=== PATIENT | male | born 1950 | race Caucasian/White ===

== ENCOUNTER 2023-08-27 21:45 | Emergency (ER) | payer BC, SELFPAY ==
--- NOTE | 2023-08-27 | ECG_ITS ---
Test Reason : dyspnea Blood Pressure : / mmHG Vent. Rate : 053 BPM Atrial Rate : 053 BPM P-R Int : 180 ms QRS Dur : 088 ms QT Int : 478 ms P-R-T Axes : 045 049 173 degrees QTc Int : [address] & T wave abnormality, consider inferior ischemia ST & T wave abnormality, consider anterolateral ischemia Abnormal ECG No previous ECGs available Referred By: Generic ED Physician Electronically Signed By:MERCEDES XAVIER
--- NOTE | ~2023-08-27 | XR_ITS ---
EXAMINATION: XR CHEST CLINICAL INFORMATION: Shortness of breath. COMPARISON: None available. TECHNIQUE: 2 views of the chest were obtained. FINDINGS: There are sternotomy sutures. There is a left atrial appendage clip. There are surgical clips along the right heart border. The heart is normal in size. 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 The lungs are clear. There is no pleural effusion or pneumothorax. No acute osseous abnormality. XR/XR chest 2V IMPRESSION: No acute cardiopulmonary disease.
[2023-08-27 22:05] VITALS: BP 111/59; PULSE 52; RESP 21; TEMP 36.3; O2SAT 97; BMI 26.1
[2023-08-27 22:33] LABS: MANUAL DIFF FLAG NO
[2023-08-27 22:37] LABS: Basophils Percent Auto 0.4 % (0-2); Eosinophils Absolute Auto 0.2 X10*3/uL (0.0-0.4); Eosinophils Percent Auto 3.4 % (0-4); Hematocrit 36.7 % (42.0-52.0); Hemoglobin 12.6 g/dl (14.0-18.0); Imm Gran Abs Auto 0.02 X10*3/uL (0.00-0.03); Imm Gran Pct Auto 0.3 % (0.0-0.4); Lymphocytes Absolute Auto 1.5 X10*3/uL (1.2-4.9); Lymphocytes Percent Auto 22.1 % (20-40); Mean Corpuscular HGB Conc 34.3 g/dl (31.0-36.0); Mean Corpuscular Hemoglobin 32.4 pg (27.0-33.0); Mean Corpuscular Volume 94.3 fL (80.0-98.0); Mean Platelet Volume 9.9 fL (9.4-12.4); Monocytes Absolute Auto 0.7 X10*3/uL (0.1-1.2); Monocytes Percent Auto 10.2 % (2-11); Neutrophils Absolute Auto 4.4 x10*3/uL (2.0-8.3); Neutrophils Percent Auto 63.6 % (45-73); Platelet Count 184 X10*3/uL (160-400); Red Blood Count 3.89 X10*6/uL (4.60-5.80); Red Cell Distribution Width 13.5 % (11.0-16.0)
[2023-08-27 22:51] LABS: Alanine Aminotransferase 19 U/L (0-40); Albumin Level 3.9 g/dL (3.5-5.0); Alkaline Phosphatase 63 U/L (39-117); Anion Gap 14 (12-20); Aspartate Amino Transferase 20 U/L (5-37); Bilirubin Total 0.8 mg/dL (0.0-1.0); Blood Urea Nitrogen 22 mg/dL (9-16); Calcium 9.7 mg/dL (8.4-10.2); Carbon Dioxide 26 mmol/L (22-29); Chloride 104 mmol/L (96-108); Creatinine Clr Calc Pharmacy 48.8; Estimated Glomerular Filt Rate > 60; Glucose Random 174 mg/dL (60-115); Sodium 140 mmol/L (135-145); Total Protein 6.5 g/dL (6.5-8.0)
[2023-08-27 22:57] LABS: B Type Natriuretic Peptide 268 pg/mL (<100)
[2023-08-27 22:58] LABS: Troponin-I High Sensitivity 12.5 ng/L (<3.5-35.0)
[2023-08-27 23:15] LABS: Influenza A PCR NEGATIVE (Negative); Influenza B PCR NEGATIVE (Negative); Resp Syncy Virus RNA Qual PCR NEGATIVE (Negative); SARS COV2 PCR INHOUSE NEGATIVE (Negative)
[2023-08-28 00:19] VITALS: PULSE 55; RESP 20; TEMP 37.1; O2SAT 99
--- NOTE | 2023-08-28 00:21 | PC.NURSE ---
Pt reports 7/10 chest pain with cough. A&oX4 cough was productive but now dry and persistent.
--- NOTE | 2023-08-28 00:31 | ED.GENADULT ---
HPI - General Adult General Chief complaint: Dyspnea Stated complaint: Cough Time Seen by Provider: 08/28/23 00:30 Source: patient Mode of arrival: ambulatory Limitations: no limitations History of Present Illness HPI narrative: Patient is a 73 year old assigned male at with a history of pulmonary hypertension presenting to the emergency department today with a productive cough. Patient states that over the last 4 days he has had a persistent cough that is sometimes productive. Patient denies any dizziness, lightheadedness, abdominal pain, nausea, vomiting, fever, chills, blurry vision, double vision, loss of vision, chest pain, difficulty breathing, shortness of breath, back pain, night sweats, pain with urination, increased urinary frequency, increased urinary urgency, blood in his urine or stool, syncope or a near syncopal episode, recent trauma or falls, bowel incontinence, bladder incontinence, bowel retention, bladder retention, or any other complaints at this time. Onset (ago): day(s) (4) Severity: mild Relieving factors: none Exacerbating factors: none Associated symptoms: cough Treatments prior to arrival: none Related Data Previous Rx's ?Medication ?Instructions ?Recorded benzonatate 100 mg capsule 100 mg PO BID PRN cough 7 days #14 08/28/23 caps dextromethorphan-guaifenesin 10 1 tab-cap PO Q8H PRN cough #14 caps 08/28/23 mg-200 mg capsule (Coricidin HBP Chest Congestion-Cough) doxycycline hyclate 100 mg tablet 100 mg PO BID 7 days #14 tabs 08/28/23 Allergies Allergy/AdvReac Type Severity Reaction Status Date / Time lisinopril Allergy Cough Verified 08/27/23 22:09 Review of Systems Constitutional: Constitutional: Reports no additional constitutional complaints, Denies chills, Denies fever(s) and Denies night sweats Eyes: Eyes: Reports no additional eye complaints, Denies blurry vision, Denies change in vision, Denies diplopia, Denies eye discharge, Denies loss of vision and Denies eye pain ENT: Denies dizziness Cardiovascular: Cardiovascular: Reports no additional cardiovascular complaints, Denies chest pain, Denies lightheadedness, Denies Loss of Consciousness and Denies dyspnea Respiratory: Respiratory: Reports no additional respiratory complaints, Reports cough and Denies dyspnea Gastrointestinal: Gastrointestinal: Reports no additional gastrointestinal complaints, Denies abdominal pain, Denies melena, Denies hematochezia, Denies change in bowel habits and Denies change in stool character Genitourinary: Genitourinary: Reports no additional male genitourinary complaints, Denies hematuria, Denies oliguria, Denies difficulty urinating, Denies dysuria, Denies urinary frequency, Denies urinary hesitancy, Denies urinary incontinence and Denies urinary urgency Musculoskeletal: Musculoskeletal: Reports no additional musculoskeletal complaints, Denies numbness and Denies tingling Neurologic: Denies dizziness, Denies loss of vision, Denies numbness and Denies tingling Psychiatric: Psychiatric: Reports no additional psychiatric complaints Endocrine: Endocrine: Reports no additional endocrine complaints Hematologic/Lymphatic: Hematologic/Lymphatic: Reports no additional hematologic/lymphatic complaints Allergic/Immunologic: Allergic/Immunologic: Reports no additional allergic/immunologic complaints PMFSH Past Medical History Attestation statement: The following information was validated with the patient. Source: old records reviewed and nursing notes reviewed Social History Social History Alcohol intake: never Smoked in Last 30 Days: No Use of substances other than those prescribed or required for medical reasons: No Advance Directives: No Advance Directives Information Provided: Yes Do you have a plan to hurt others: No Plan Physical Exam ED Vital Signs: Vital Signs - 24 hr 08/27/23 22:05 08/28/23 00:19 08/28/23 01:12 Temperature 97.3 F 98.7 F 98.7 F Pulse Rate 52 55 55 Respiratory Rate 21 H 20 20 Blood Pressure 111/59 L 111/59 L Pulse Oximetry 97 99 99 Oxygen Delivery Method Room Air Room Air Room Air BMI result Body Mass Index 26.1 Const General: cooperative, no acute distress, alert and awake Nutritional Appearance: well nourished Orientation/consciousness: patient oriented x3 Limitations: no limitations HENMT Head: Yes normal to inspection and Yes atraumatic Ears: hearing grossly normal bilaterally and external ears normal General nose exam: Normal external nose present, no nasal discharge noted and no epistaxis Face and sinus: Yes normal facial exam, No abrasion and No laceration Mouth: Normal oral and palatal mucosa present, no drooling and no muffled voice Eyes General: appearance normal, both eyes and all related structures Periorbital: periorbital findings normal Eyelids: Yes eyelids normal Conjunctivae: conjunctivae normal Pupils: Equal, round and reactive pupils present EOM: EOMs intact bilaterally Neck Neck: Yes normal visual inspection, Yes full ROM and Yes no lymphadenopathy Chest Chest palpation & inspection: normal inspection of the chest Resp Effort & Inspection: normal respiratory effort, able to speak in complete sentences and Actively coughing Quality: productive GI Inspection: Yes normal to inspection Neuro General: patient oriented x3 and moves all extremities Cranial nerves: Yes Equal, round and reactive pupils present Cognition (Neuro): normal cognition Motor exam (neuro): 5/5 motor strength present throughout Sensory Exam: Normal double simultaneous stimulation for sensation Coordination: [id number] test normal Extrem General: Yes normal to inspection, Yes full ROM and Yes capillary refill normal Psych Appearance: grossly normal Mental Status: mental status grossly normal Affect: normal affect Attitude: cooperative Thought process: Normal thought process present Thought content: Normal thought content present Insight: Good insight present (Psych) Medications Administered Discontinued Medications Generic Name Dose Route Start Last Admin Trade Name Freq PRN Reason Stop Dose Admin Benzonatate 100 mg 08/28/23 00:47 08/28/23 01:09 Benzonatate 100 Mg Capsule PO 08/28/23 00:48 100 mg ONCE ONE Administration Doxycycline Monohydrate 100 mg 08/28/23 00:47 08/28/23 01:09 Doxycycline Monohydrate 100 Mg Capsule PO 08/28/23 00:48 100 mg ONCE ONE Administration Medical Decision Making Medical Decision Making [facility] Narrative: Patient is a 73 year old assigned male at with a history of pulmonary hypertension presenting to the emergency department today with a persistent cough that is sometimes productive. Patient's physical exam showed a cough but was otherwise unremarkable. Patient's blood work showed a very mild elevated BNP of 268 but were otherwise unremarkable. Patient's EKG was unremarkable. Patient's chest x-ray showed no acute process. Patient's clinical presentation is most consistent with bronchitis / URI. No evidence of fluid overload. I explained my physical exam findings as well as all test results to the patient. I answered all questions asked by the patient. I stressed the importance of the patient taking his medication as prescribed. I stressed the importance of the patient following up with his primary care provider. I stressed the importance of the patient returning to the emergency department immediately if his symptoms were to worsen or if he were to develop any dizziness, shortness of breath, difficulty breathing, chest pain, blurry vision, loss of vision, nausea, vomiting, abdominal pain, fever, chills, back pain, or any other complaints. Patient verbalized agreement and understanding with this treatment plan and discharge. Differential Diagnosis Differential Diagnoses: The differential diagnosis associated with the presentation includes Persistent cough Bronchitis COVID-19 Influenza RSV CHF PNA Admission/Observation Consideration of admission/observation: Escalation of care including admission/observation considered Patient would have been admitted to the hospital had his work up had any findings where hospital admission was appropriate and his clinical presentation warranted hospital admission. Lab Data [facility] Lab Attestation statement: I reviewed the patient's lab results. My interpretation of these results are in the [facility] Rationale portion of this note. 08/27/23 22:28 08/27/23 22:28 Labs: Lab Results 08/27/23 Range/Units 22:28 WBC 7.0 (4.8-10.8) X10*3/uL RBC 3.89 L (4.60-5.80) X10*6/uL Hgb 12.6 L (14.0-18.0) g/dl Hct 36.7 L (42.0-52.0) % MCV 94.3 (80.0-98.0) fL MCH 32.4 (27.0-33.0) pg MCHC 34.3 (31.0-36.0) g/dl RDW 13.5 (11.0-16.0) % Plt Count 184 (160-400) X10*3/uL MPV 9.9 (9.4-12.4) fL Immature Gran % (Auto) 0.3 (0.0-0.4) % Neut % (Auto) 63.6 (45-73) % Lymph % (Auto) 22.1 (20-40) % Bee % (Auto) 10.2 (2-11) % Eos % (Auto) 3.4 (0-4) % Baso % (Auto) 0.4 (0-2) % Lymph # (Auto) 1.5 (1.2-4.9) X10*3/uL Bee # (Auto) 0.7 (0.1-1.2) X10*3/uL Eos # (Auto) 0.2 (0.0-0.4) X10*3/uL Baso # (Auto) 0.0 (0.0-0.2) X10*3/uL Abs Immat Gran (auto) 0.02 (0.00-0.03) X10*3/uL Absolute Neuts (auto) 4.4 (2.0-8.3) x10*3/uL Absolute Nucleated RBC 0.000 (0.0-0.012) X10*3/uL Nucleated RBC % (auto) 0.0 (0.0-0.2) /100WBC Sodium 140 (135-145) mmol/L Potassium 4.0 (3.3-5.1) mmol/L Chloride 104 (96-108) mmol/L Carbon Dioxide 26 (22-29) mmol/L Anion Gap 14 (12-20) BUN 22 H (9-16) mg/dL Creatinine 1.18 (0.5-1.4) mg/dL Estim Creat Clear Calc 48.8 Estimated GFR > 60 Random Glucose 174 H (60-115) mg/dL Calcium 9.7 (8.4-10.2) mg/dL Total Bilirubin 0.8 (0.0-1.0) mg/dL AST 20 (5-37) U/L ALT 19 (0-40) U/L Alkaline Phosphatase 63 (39-117) U/L Troponin I High Sens 12.5 (<3.5-35.0) ng/L B-Natriuretic Peptide 268 H (<100) pg/mL Total Protein 6.5 (6.5-8.0) g/dL Albumin 3.9 (3.5-5.0) g/dL Influenza Type A (PCR) NEGATIVE (Negative) Influenza Type B (PCR) NEGATIVE (Negative) RSV RNA Qual (PCR) NEGATIVE (Negative) SARS-CoV-2 RNA (RT-PCR) NEGATIVE (Negative) Independent Interpretation I performed an independent interpretation of an: EKG and Plain X-Ray Interpretation: My interpretation is in agreement with the radiologist's impression of this imaging study. EXAMINATION: XR CHEST CLINICAL INFORMATION: Shortness of breath. COMPARISON: None available. TECHNIQUE: 2 views of the chest were obtained. FINDINGS: There are sternotomy sutures. There is a left atrial appendage clip. There are surgical clips along the right heart border. The heart is normal in size. 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 The lungs are clear. There is no pleural effusion or pneumothorax. No acute osseous abnormality. XR/XR chest 2V IMPRESSION: No acute cardiopulmonary disease. Dictated By: Bryan Bowles Jr, DO Signed By: Electronically signed by Bryan Bowles Jr, DO 08/27/23 2257 Vent. Rate: 053 BPM Atrial Rate: 053 BPM P-R Int: 180 ms QRS Dur: 088 ms QT Int: 478 ms P-R-T Axes: 045 049 173 degrees QTc Int: [address] & T wave abnormality, consider inferior ischemia ST & T wave abnormality, consider anterolateral ischemia Abnormal ECG No previous ECGs available DD/ 2092 Radiology Impression Discussion of test interpretation with radiology: I have reviewed the radiologist's reading. Prescription Management I considered prescription management with: Antibiotic (patient prescribed antibiotic for bronchitis) Discharge Plan Discharge Clinical Impression: Cough, Bronchitis Patient Disposition: Home, Self-Care Instructions: Acute Bronchitis (ED), Acute Cough (ED) Additional Instructions: Your medication was prescribed to [address] [place] [address] in [facility]. Take your medication as prescribed. Follow up with your primary care provider. Return to the emergency department immediately if your symptoms worsen or if you develop any dizziness, shortness of breath, difficulty breathing, chest pain, blurry vision, loss of vision, nausea, vomiting, abdominal pain, fever, chills, back pain, or any other complaints. Prescriptions: New benzonatate 100 mg capsule 100 mg PO BID PRN (Reason: cough) 7 Days Qty: 14 0RF doxycycline hyclate 100 mg tablet 100 mg PO BID 7 Days Qty: 14 0RF Coricidin HBP Chest Geovany-Cough 10-200 mg capsule 1 tab-cap PO Q8H PRN (Reason: cough) Qty: 14 0RF Referrals: [facility] Family Medicine [Provider Group] (Call to establish and follow up with a primary care provider. If you already have a primary care provider, please follow up with them.) [facility] [Provider Group] [facility] [Provider Group] Stand Alone Forms: Work/School Release Interventions: ED Discharge Assessment Last Done: 08/28/23 01:12 Discharge Date/Time: 08/28/23 01:30 Print Language: Icelandic
[2023-08-28] MEDS: Benzonatate 100 MG CAPSULE PO (01:09)
[2023-08-28] MEDS: Doxycycline Monohydrate 100 MG CAPSULE PO (01:09)
[2023-08-28 01:12] VITALS: BP 111/59; PULSE 55; RESP 20; TEMP 37.1; O2SAT 99
== END 2023-08-28 01:30 | disposition home or self-care (01) ==
PROVIDERS: Emergency Provider Emergency Medicine
DX: J40 Bronchitis, not specified as acute or chronic (principal); R05.9 Cough, unspecified; I27.20 Pulmonary hypertension, unspecified; Z11.52 Encounter for screening for COVID-19
CPT/HCPCS: 0241U; 36415; 71046; 80053; 83880; 84484; 85025; 93005; 99283; 99284

== ENCOUNTER → 2023-08-27 22:19 | Outpatient (BNV) | payer BC, SELFPAY | PROVIDERS: Emergency Provider Emergency Medicine; Visit Provider Internal Medicine | DX: R00.1 Bradycardia, unspecified (principal); R94.31 Abnormal electrocardiogram [ECG] [EKG] | CPT/HCPCS: 93010 ==